=== PATIENT | female | born 1945 | race Caucasian/White ===

== ENCOUNTER 2016-06-12 10:26 | Emergency (ER) | payer OTHER, MEDICARE ==
[~2016-06-12] VITALS: Ht 165.1 cm; Wt 82.0 kg
[~2016-06-12 10:26] MED LIST: ALEVE220 MG PO; ARTHRITIS PAIN650 M5 PO; ASCORBIC ACID500 M3 PO; ASPIRIN81 M2 PO; ATORVASTATIN CA40 MG PO; CALCIO DEL MAR500 MG PO; CALCIUM 600 MG1 EAC1 PO; COUMADIN2.5 MG PO; Calcium PO; DILAUDID2 MG PO; FIORICET WI1 CAPSULE PO; FLEXERIL10 MG PO; FOLIC ACID1 MG PO; FUROSEMIDE40 MG PO; GLUCOPHAGE1000 MG PO; GLUCOPHAGE500 MG PO; HUMULIN 70100 UNIT/1 SC; IBUPROFEN600 MG PO; IRON325 M1 PO; LEVEMIR100 UNIT/2 SC; LEVOFLOXACIN500 MG PO; LEVOTHYROXINE125 MCG PO; LIDODERM 5% P1 PATCH TD; LISINOPRIL10 MG PO; LOVASTATIN20 MG PO; LOVENOX40 MG/0.4 SC; METFORMIN HCL1000 MG PO; METFORMIN HCL500 MG PO; MOTRIN600 MG PO; NAPROSYN500 MG PO; NORCO 5/3251 TABLET PO; NOVOLIN,HU100 UNITS/ SC; NOVOLOG MI100 UNIT/4 SC; NOVOLOG MI100 UNIT/M SC; NOVOLOG PE100 UNITS/ SC; OXYCODONE HCL5 MG PO; PERCOCET 5/31 TABLET PO; PERCOCET 7.51 TABLET PO; PRILOSEC20 MG PO; PRINIVIL10 MG PO; SYNTHROID150 MCG PO; THERAGRAN1 TABLET PO; TIROSINT100 MCG PO; TIROSINT13 MCG PO; TRAMADOL HCL50 MG PO; TYLENOL ARTHRI650 MG PO; ULTRAM50 MG PO; VALIUM5 MG PO; VISTARIL25 MG PO; VITAMIN D-32000 UNI2 PO
[2016-06-12 11:33] LABS: EOSINOPHIL (%) 1.1 % (0-5); EOSINOPHIL COUNT 0.1 K/uL (0-0.3); HEMATOCRIT 32.7 % (36.0-46.0); IMMATURE GRANULOCYTE (%) 0.8 % (0.0-0.7); IMMATURE GRANULOCYTE COUNT 0.1 K/uL; INSTRUMENT ABS NEUTROPHIL CT 5.2 K/uL; LYMPHOCYTE COUNT 1.5 K/uL (1.0-2.8); MCH 25.5 PG (29.0-34.0); MCHC 31.5 G/DL (30.0-36.0); MCV 80.9 FL (83-99); MEAN PLAT.VOLUME 10.2 uM^3 (9.5-12.4); MONOCYTE (%) 6.1 % (3-12); MONOCYTE COUNT 0.4 K/uL (0-0.8); NEUTROPHIL (%) 71.2 % (45-76); NEUTROPHIL COUNT 5.2 K/uL (1.8-6.4); PLATELET COUNT 249 K/uL (156-360); RBC DIS.WIDTH-CV 16.7 % (11.8-14.6); RBC DIS.WIDTH-SD 49.1 % (39-53); RED BLOOD COUNT 4.04 M/uL (3.80-5.20); WHITE BLOOD COUNT 7.3 K/uL (4.1-10.2)
[2016-06-12 11:42] LABS: INTER. NORMALIZED RATIO 1.1; PROTHROMBIN TIME 11.3 (9.2-11.2)
[2016-06-12 12:17] LABS: CHLORIDE 104 mEq/L (99-109); POTASSIUM 3.9 mEq/L (3.7-5.4); SODIUM 140 mEq/L (136-147)
[2016-06-12 12:19] LABS: GLUCOSE 191 mg/dL (70-99)
[2016-06-12 12:20] LABS: ANION GAP 13 MEQ/L (2-14)
[2016-06-12 12:22] LABS: GFR ESTIMATE (CALCULATED) 47 mL/min/
[2016-06-12 12:23] LABS: UREA NITROGEN (BUN) 18 mg/dL (9-23)
[2016-06-12 12:54] LABS: ADD MIUA? YES; BILIRUBIN NEGATIVE; BLOOD NEGATIVE; COLOR STRAW ((YELLOW)); GLUCOSE (STRIP) NEGATIVE; KETONES NEGATIVE; LEUKOCYTES MODERATE; NITRITE POSITIVE; PROTEIN (STRIP) NEGATIVE; SPECIFIC GRAVITY 1.005 (1.000-1.030); UROBILINOGEN 0.2 MG/DL (0.2-1.0)
[2016-06-12 13:04] LABS: BACTERIA 1+ /HPF; EPITHELIAL CELLS RARE /HPF; MUCUS TRACE /LPF; RED BLOOD CELLS 0-5 /HPF (0-5)
[2016-06-12] MEDS ORDERED: TYLENOL WITH C1 EACH PO (13:55)
[2016-06-12] MEDS ORDERED: CIPRO500 MG PO (13:55)
[2016-06-12 14:11] VITALS: BP 126/75
== END 2016-06-12 14:10 | disposition home or self-care (01) ==
LOC: EME 10:26
PROVIDERS: Emergency Medicine
DX: S30.1XXA Contusion of abdominal wall, initial encounter (principal); N39.0 Urinary tract infection, site not specified; E11.9 Type 2 diabetes mellitus without complications; W18.30XA Fall on same level, unspecified, initial encounter; Y92.002 Bathroom of unspecified non-institutional (private) residence as the place of occurrence of the external cause; Z96.651 Presence of right artificial knee joint; Z79.4 Long term (current) use of insulin
CPT/HCPCS: 74177; 80048; 81003; 85025; 85610; 99281; 99285; J3010; J7030

== ENCOUNTER 2016-11-06 07:29 | Day surgery (SDC) | payer OTHER, MEDICARE ==
[~2016-11-06] VITALS: Ht 162.6 cm; Wt 77.2 kg
[~2016-11-06 07:29] MED LIST changes: +CIPRO500 MG PO; -LEVOTHYROXINE125 MCG PO; +NOVOLOG MI100 UNIT/2 SC; +TYLENOL WITH C1 EACH PO
[2016-11-06 08:11] VITALS: BP 148/79
[2016-11-06 09:07] LABS: POINT-OF-CARE METER ID UU14174212
[2016-11-06 11:31] LABS: POINT-OF-CARE METER ID UU13113675
[2016-11-06 12:20] VITALS: BP 178/74
[2016-11-06 13:10] VITALS: BP 132/61
== END 2016-11-06 13:22 | disposition home or self-care (01) ==
LOC: SDC 07:29
PROVIDERS: Orthopaedic Surgery
PROC: 0QP704Z Removal of Internal Fixation Device from Left Upper Femur, Open Approach (ICD-10-PCS; principal; 2016-11-06)
DX: T84.84XA Pain due to internal orthopedic prosthetic devices, implants and grafts, initial encounter (principal); M70.62 Trochanteric bursitis, left hip; E11.9 Type 2 diabetes mellitus without complications; I10 Essential (primary) hypertension; K21.9 Gastro-esophageal reflux disease without esophagitis; E03.9 Hypothyroidism, unspecified; Z79.84 Long term (current) use of oral hypoglycemic drugs; Z79.4 Long term (current) use of insulin; Z79.01 Long term (current) use of anticoagulants
CPT/HCPCS: 73501; 76000; 82948; J1815; J2405; J3010

== ENCOUNTER 2017-03-01 18:58 | Observation (INO) | payer OTHER, MEDICARE ==
[~2017-03-01] VITALS: Ht 162.6 cm; Wt 82.9 kg
[2017-03-01 19:18] LABS: HEMATOCRIT 31.5 % (36.0-46.0); HEMOGLOBIN 9.9 G/DL (11.9-15.5); MCH 24.4 PG (29.0-34.0); MCHC 31.4 G/DL (30.0-36.0); MCV 77.8 FL (83-99); PLATELET COUNT 248 K/uL (156-360); RBC DIS.WIDTH-CV 16.5 % (11.8-14.6); RBC DIS.WIDTH-SD 46.3 % (39-53); RED BLOOD COUNT 4.05 M/uL (3.80-5.20); WHITE BLOOD COUNT 5.1 K/uL (4.1-10.2)
[2017-03-01 19:28] LABS: CHLORIDE 106 mEq/L (99-109); POTASSIUM 3.8 mEq/L (3.7-5.4); SODIUM 139 mEq/L (136-147)
[2017-03-01 19:29] LABS: GLUCOSE 296 mg/dL (70-99)
[2017-03-01 19:33] LABS: CREATININE 0.9 mg/dL (0.6-1.3); GFR ESTIMATE (CALCULATED) > 59 mL/min/
[2017-03-01 19:34] LABS: UREA NITROGEN (BUN) 8 mg/dL (9-23)
[2017-03-01 19:39] LABS: TROP-I INTERPRETATION NEGATIVE; TROPONIN-I < 0.01 ng/mL (0.0-0.30)
[2017-03-01 21:52] LABS: ALBUMIN 3.6 g/dL (3.2-4.8)
[2017-03-01 21:56] LABS: TOTAL BILIRUBIN 0.3 mg/dL (0.0-1.0)
[2017-03-01 21:57] LABS: ALKALINE PHOSPHATASE 71 IU/L (3-129)
[2017-03-01 22:00] LABS: AST (GOT) 13 IU/L (2-34); DIRECT BILIRUBIN 0.1 mg/dL (0.0-0.3)
[2017-03-01 22:01] LABS: ALT (GPT) 9 IU/L (3-49); LIPASE 17 U/L (1.0-51.0)
[2017-03-01 22:47] LABS: APPEARANCE SL.HAZY ((CLEAR)); BILIRUBIN NEGATIVE; BLOOD NEGATIVE; COLOR YELLOW ((YELLOW)); GLUCOSE (STRIP) >=500; KETONES NEGATIVE; LEUKOCYTES LARGE; NITRITE POSITIVE; PROTEIN (STRIP) NEGATIVE; SPECIFIC GRAVITY 1.008 (1.000-1.030); UROBILINOGEN 0.2 MG/DL (0.2-1.0)
[2017-03-01 22:54] LABS: BACTERIA 2+ /HPF; EPITHELIAL CELLS RARE /HPF; MUCUS TRACE /LPF; RED BLOOD CELLS 0-5 /HPF (0-5); WHITE BLOOD CELLS TNTC /HPF (0-5)
[2017-03-02 02:03] LABS: D-DIMER ELISA < 150.00 ng/mLDDU (<230)
[2017-03-02 02:15] LABS: TROP-I INTERPRETATION NEGATIVE; TROPONIN-I < 0.01 ng/mL (0.0-0.30)
[2017-03-02 03:35] VITALS: BP 176/79
[2017-03-02 08:55] VITALS: BP 154/66
[2017-03-02 10:12] LABS: HEMOGLOBIN 10.1 G/DL (11.9-15.5); MCH 24.1 PG (29.0-34.0); MCHC 30.6 G/DL (30.0-36.0); MCV 78.8 FL (83-99); PLATELET COUNT 244 K/uL (156-360); RBC DIS.WIDTH-CV 16.5 % (11.8-14.6); RED BLOOD COUNT 4.19 M/uL (3.80-5.20); WHITE BLOOD COUNT 5.6 K/uL (4.1-10.2)
[2017-03-02 10:30] LABS: TROP-I INTERPRETATION NEGATIVE; TROPONIN-I < 0.01 ng/mL (0.0-0.30)
[2017-03-02 10:36] LABS: CHLORIDE 103 MEQ/L (99-109); CREATININE 0.9 MG/DL (0.6-1.3); GFR ESTIMATE (CALCULATED) > 59 mL/min/; GLUCOSE 343 mg/dL (70-99); POTASSIUM 4.5 MEQ/L (3.7-5.4); SODIUM 139 MEQ/L (136-147); UREA NITROGEN (BUN) 8 mg/dL (9-23)
[2017-03-02 19:17] VITALS: BP 151/72
[2017-03-02 23:48] VITALS: BP 154/76
[2017-03-03 03:01] VITALS: BP 141/73
[2017-03-03 07:30] VITALS: BP 139/71
[2017-03-03 12:57] VITALS: BP 143/69
[2017-03-03] MEDS ORDERED: CIPRO500 MG PO (13:44)
== END 2017-03-03 17:56 | disposition home or self-care (01) ==
LOC: EME 18:58 → EDOF 03-02 01:05 → 5WEST 03-02 01:05 → EDOF 03-02 01:05 → ENRESERV 03-02 01:06 → 5WEST 03-02 03:31 → ENPENDDIS 03-03 → 5WEST 03-03 11:08
PROVIDERS: Hospitalist; Physician Assistant
DX: N30.00 Acute cystitis without hematuria (principal); R07.9 Chest pain, unspecified; E11.65 Type 2 diabetes mellitus with hyperglycemia; Z87.440 Personal history of urinary (tract) infections; E11.42 Type 2 diabetes mellitus with diabetic polyneuropathy; E03.9 Hypothyroidism, unspecified; I10 Essential (primary) hypertension; D53.9 Nutritional anemia, unspecified; M19.90 Unspecified osteoarthritis, unspecified site; R60.0 Localized edema; E78.5 Hyperlipidemia, unspecified; Z96.652 Presence of left artificial knee joint; Z88.1 Allergy status to other antibiotic agents; Z88.5 Allergy status to narcotic agent; Z90.49 Acquired absence of other specified parts of digestive tract; Z79.4 Long term (current) use of insulin
CPT/HCPCS: 71046; 74177; 76770; 80048; 80076; 81003; 82948; 83605; 83690; 84484; 85027; 85379; 87077; 87086; 87186; 93005; 93970; 99281; 99285; G0378; J0744; J1644; J1815; J1956; J7030